=== PATIENT | female | born 1970 | race Caucasian/White ===

== ENCOUNTER → 2018-02-15 10:41 | Outpatient (CLI) | payer OTHER, SELFPAY | PROVIDERS: Family Provider Family Medicine; PCP Family Medicine; Visit Provider Obstetrics & Gynecology | DX: Z12.31 Encounter for screening mammogram for malignant neoplasm of breast (principal) | CPT/HCPCS: 77063; 77067 ==

== ENCOUNTER → 2018-09-18 | Outpatient (CLI) | payer OTHER, SELFPAY ==
[2018-09-18 17:44] LABS: Absolute Lymphocyte Count 2.68 X10^3/ul (0.83-4.51); Absolute Neutrophil Count 3.6 X10^3/uL (2.0-7.7); Basophil# 0.03 X10^3/uL; Basophil% 0.4 % (0-1); Eosinophil# 0.31 X10^3/uL; Eosinophils% 4.3 % (0-5); Hematocrit 38.2 % (37-47); Hemoglobin 12.2 g/dl (12.0-15.0); Lymphocyte # 2.68 X10^3/ul (4.0); Mean Corp Hgb Conc 31.9 g/gl (32-36); Mean Corpuscular Hgb 26.5 pg (27.0-32.0); Mean Corpuscular Volume 82.9 fL (81-99); Mean Platelet Vol. 9.5 fl (6.2-12.0); Monocyte# 0.64 X10^3/uL; Monocyte% 8.8 % (0-10); Neutrophil # 3.58 X10^3/uL (2.7-7.7); Neutrophil % 49.4 % (47-70); Platelet Count 380 K/mm3 (150-450); RBC Distribution Width CV 13.7 % (11.6-14.6); RBC Distribution Width SD 41.6 fl (35.1-43.9); Red Blood Count 4.61 M/mm3 (4.2-5.4); White Blood Count 7.3 K/mm3 (4.4-11.0)
[2018-09-18 17:48] LABS: POSITIVE COUNT NO; POSITIVE DIFFERENTIAL NO; POSITIVE MORPHOLOGY NO
[2018-09-18 18:06] LABS: ALB/GLOB Ratio 1.1 RATIO (0.9-2.4); AST(SGOT) 18 U/L (15-37); Alanine Aminotransfer ALT/SGPT 32 U/L (13-56); Albumin, Serum 3.9 g/dL (3.2-5.0); Alkaline Phosphatase 86 U/L (45-117); Anion Gap 7 (5-15); BUN 14 mg/dL (7-18); BUN/Creat Ratio 18.3 RATIO (10-20); Calcium,Total 8.8 mg/dL (8.5-10.1); Chloride 103 mmol/L (98-107); Creatinine, Serum 0.77 mg/dL (0.55-1.02); EST Glomerular Filtration Rate 86 mL/min (>60); Est Glom Filt Rate - Afr Amer 104 mL/min (>60); Globulin 3.6 g/dL (2.2-4.2); Glucose 95 mg/dL (74-106); Protein, Total 7.5 g/dL (6.4-8.2); Sodium Level 139 mmol/L (136-145); Thyroid Stim Hormone (TSH) 0.84 uIU/mL (0.358-3.74)
== END | disposition home or self-care (01) ==
LOC: MFPLAB 16:56
PROVIDERS: Family Provider Family Medicine; PCP Family Medicine; Referring Provider Family Medicine; Visit Provider Family Medicine
DX: R00.0 Tachycardia, unspecified (principal)
CPT/HCPCS: 36415; 80053; 84443; 85025

== ENCOUNTER → 2019-02-26 | Outpatient (CLI) | payer OTHER, SELFPAY | END | disposition home or self-care (01) | LOC: LABSPEC 16:31 | PROVIDERS: Family Provider Family Medicine; PCP Family Medicine; Referring Provider Obstetrics & Gynecology; Visit Provider Obstetrics & Gynecology | DX: Z12.4 Encounter for screening for malignant neoplasm of cervix (principal) ==

== ENCOUNTER → 2019-03-07 | Outpatient (CLI) | payer OTHER, SELFPAY ==
--- NOTE | 2019-03-07 15:41 | BI_ITS ---
MAMMOGRAPHY - BILATERAL SCREENING REASON FOR EXAM: Female, 48 years old. Routine annual screening examination. PERTINENT HISTORY: Aunt with breast cancer. TECHNIQUE: Digital bilateral breast monica (3D mammographic acquisition) in the CC and MLO projections. 2-D mediolateral oblique (MLO) and craniocaudad (CC) views of both breasts were obtained. CAD: Full Field Digital Mammography with Computer Added Detection was performed. COMPARISON: Comparison is made with prior study dated February 15, 2018 and January 19, 2017. FINDINGS: Breast Composition: The breasts are heterogeneously dense, which may obscure small masses. There are no dominant masses or suspicious calcifications. No other significant abnormalities are identified. There has been no significant change since the prior study. BI/SCREEN MAMM (CAD) W/MONICA BILAT IMPRESSION: Stable bilateral screening mammogram. Yearly follow-up mammogram recommended. (A) ASSESSMENT CATEGORY: BIRADS Category 1: Negative. A letter regarding these results will be sent to the patient by the facility within 30 days. Approximately 10% of breast cancers are not detected by mammography. A normal mammogram should not delay biopsy of a clinically suspicious abnormality. [id number] Electronically Signed: Donnie John, at 8:31 EDT , Service support ,
== END | disposition home or self-care (01) ==
LOC: OPBI 15:40
PROVIDERS: Family Provider Family Medicine; PCP Family Medicine; Referring Provider Obstetrics & Gynecology; Visit Provider Obstetrics & Gynecology
DX: Z12.31 Encounter for screening mammogram for malignant neoplasm of breast (principal)
CPT/HCPCS: 77063; 77067

== ENCOUNTER → 2020-09-07 15:41 | Outpatient (CLI) | payer OTHER, SELFPAY ==
[2019-07-12 10:03] VITALS: BMI 28.5
--- NOTE | 2020-09-07 15:43 | BI_ITS ---
MAMMOGRAPHY - BILATERAL SCREENING REASON FOR EXAM: Female, 50 years old. Routine annual screening examination. PERTINENT HISTORY: Aunt with breast cancer. TECHNIQUE: Digital bilateral breast monica (3D mammographic acquisition) in the CC and MLO projections. 2-D mediolateral oblique (MLO) and craniocaudad (CC) views of both breasts were obtained. CAD: Full Field Digital Mammography with Computer Added Detection was performed. COMPARISON: Comparison is made with prior study dated 03/07/2019 and 02/15/2018. FINDINGS: Breast Composition: The breasts are heterogeneously dense, which may obscure small masses. There are no dominant masses or suspicious calcifications. Stable small benign-appearing bilateral axillary lymph nodes. No other significant abnormalities are identified. There has been no significant change since the prior study. BI/SCRN MAMM (CAD)W/MONICA BILAT IMPRESSION: Stable bilateral screening mammogram. Yearly follow-up mammogram recommended. (A) ASSESSMENT CATEGORY: BIRADS Category 2: Benign. A letter regarding these results will be sent to the patient by the facility within 30 days. Approximately 10% of breast cancers are not detected by mammography. A normal mammogram should not delay biopsy of a clinically suspicious abnormality. [id number] Electronically Signed: Donnie John MD at 8:00 EDT , Service support ,
== END ==
PROVIDERS: PCP Family Medicine; Referring Provider Obstetrics & Gynecology; Visit Provider Obstetrics & Gynecology
DX: Z12.31 Encounter for screening mammogram for malignant neoplasm of breast (principal)
CPT/HCPCS: 77063; 77067

== ENCOUNTER 2021-03-04 16:30 | Outpatient (RCR) | payer OTHER, SELFPAY ==
[2019-07-12 10:03] VITALS: BMI 28.5
--- NOTE | 2020-11-04 07:25 | HP.PTEVAL ---
Patient's Visit Information ERICA PATRICK is a 50 year old F referred to Physical Therapy by Dr. Carol Daugherty MD with a diagnosis of R frozen shoulder. Date of Evaluation: 11/03/20 Physical Therapist: Roge Levy, PT, ATC - Visit Plan Frequency: 2-3x /Week Duration: 4-6 Weeks Plan: R shoulder PROM/MOBS, stretching and strengthening, scap stab ex's, pulleys and HEP. CP for pain - Subjective Pt reports she injured her R shoulder approximately 8 years ago. Pt reports she received a cortisone injection at that time that helped with all her pain. Pt is R hand dominant in nature. Pt reports she is noticing more difficulty with having to perform her IADL's at this time as getting her arm overhead to wash her hair, and reaching behind to grab a seatbelt, all results in increased pain. No tingling or numbness in R UE at this time. Pt reports occasional sleep difficulty at this time secondary to pain. Pt reports no Dx tests at this time. Pt notes 0/10 pain at rest, 10/10 pain at worst. - Pain R shoulder Pain Intensity (Out of 10): 0 Pain Intensity Range: 9 - Objective Neuro: B UE sensation is WNL to light touch. B bicepital reflex= 2/3. Palpation: Pt is sore along the LHB and supraspinatus tendons. No obvious deformity at this time. ROM: L shoulder flex= 160, abd= 160, ER 80, IR WNL; R shoulder flex= 80, abd= 80, ER= 15, IR severely limited. MMT: L shoulder is 5/5 throughout. R shoulder is grossly 4-/5 in available ROM. Special testing: Pos empty can and HK - Goals Goal 1:: Decrease R shoulder pain x 50% to aid with sleep Goal Time Frame: 4-6 Weeks Goal 2:: Increase R shoulder abd and flex ROM x 40 degrees to aid with overhead activity Goal Time Frame: 4-6 Weeks Goal 3:: Increase R shoulder strength x 1 grade to aid with IADL's Goal Time Frame: 4-6 Weeks Goal 4:: I with HEP Goal Time Frame: 4-6 Weeks - Rehabilitation Potential Physical Therapy Diagnosis: R shoulder pain, weakness, and limited ROM secondary to R frozen shoulder Rehabilitation Potential: Good - Anticipated Interventions Patient/Client Instruction: Educate patient on: Condition, Plan of Care For the Purpose of:: To improve self management Therapeutic Exercise to Include: Strength training, Passive ROM, Active ROM, Scapular Strength/Stabilization For the Purpose of:: To decrease pain, To increase ROM, To improve muscle performance and motor function Cryotherapy (ice pack, ice massage): Yes Ultrasound (thermal/non thermal): Yes For the Purpose of:: To decrease pain Thank you for the opportunity to evaluate your patient. For Medicare and Medicare HMO plans, please review the plan of care and approve it. It will need to be FAXED BACK to us at [phone] for Medicare purposes. For Medicare only, by signing this I certify the plan of care. Please let me know if there are questions or concerns regarding this plan of care. Physician Signature: Date:
--- NOTE | 2021-01-12 08:29 | HP.PTREVAL ---
Dr. Carol Daugherty MD, It has been my pleasure to treat ERICA PATRICK over the last 19 visits for R frozen shoulder. Please see the progress note below for an update on the physical therapy plan of care! Subjective: Pt reports she feels a lot better overall, but notes she is still far from getting her arm over her head Objective/Function: R shoulder pain 0/10 currently, increases to 3/10 at worst. R shoulder ROM: flex= 110, abd= 100, ER= 30, IR moderately limited. R shoulder MMT: R shoulder is grossly 4/5 throughout. Pt still lacks functional ROM and strength in R shoulder although she is showing good signs of improvement. Pt would benefit from further skilled therapy at this time. Plan Plan: Continue to focus on ROM and strengthening of the R shoulder Balance/Gait/Functional tests - Balance/Special Test Scores Quick DASH Score: 13.6350 Goals Goal 1:: Decrease R shoulder pain x 50% to aid with sleep Goal Time Frame: 4-6 Weeks Goal Progress: Goal Met Goal 2:: Increase R shoulder abd and flex ROM x 40 degrees to aid with overhead activity Goal Time Frame: 4-6 Weeks Goal Progress: Progressing Goal 3:: Increase R shoulder strength x 1 grade to aid with IADL's Goal Time Frame: 4-6 Weeks Goal Progress: Progressing Goal 4:: I with HEP Goal Time Frame: 4-6 Weeks Goal Progress: Progressing Anticipated Interventions Patient/Client Instruction: Educate patient on: Condition, Plan of Care For the Purpose of:: To improve self management Therapeutic Exercise to Include: Strength training, Passive ROM, Active ROM, Scapular Strength/Stabilization For the Purpose of:: To decrease pain, To increase ROM, To improve muscle performance and motor function Cryotherapy (ice pack, ice massage): Yes Ultrasound (thermal/non thermal): Yes For the Purpose of:: To decrease pain Please do not hesitate to contact me at [phone] by phone or if you have questions or concerns regarding this new plan of care! Sincerely, Roge Levy, PT, ATC
--- NOTE | 2021-02-04 16:40 | HP.PTREVAL_ITS ---
Dr. Carol Daugherty MD, It has been my pleasure to treat ERICA PATRICK over the last 27 visits for R frozen shoulder. Please see the progress note below for an update on the physical therapy plan of care! Subjective: I dont have any pain Objective/Function: No pain this date. No difficulty with sleeping at this time. R shoulder ROM: R shoulder flex= 130, abd= 115 degrees. R shoulder MMT: flex and ER 4/5, abd and IR= 5/5. Pt has shown significant improvements with strength and ROM, but is still limited with functional activities at work and leisure. Plan Plan: Continue to focus on ROM and strengthening of the R shoulder Balance/Gait/Functional tests - Balance/Special Test Scores Quick DASH Score: 11.3625 Goals Goal 1:: Decrease R shoulder pain x 50% to aid with sleep Goal Time Frame: 4-6 Weeks Goal Progress: Goal Met Goal 2:: Increase R shoulder abd and flex ROM x 40 degrees to aid with overhead activity Goal Time Frame: 4-6 Weeks Goal Progress: Progressing Goal 3:: Increase R shoulder strength x 1 grade to aid with IADL's Goal Time Frame: 4-6 Weeks Goal Progress: Progressing Goal 4:: I with HEP Goal Time Frame: 4-6 Weeks Goal Progress: Goal Met Anticipated Interventions Patient/Client Instruction: Educate patient on: Condition, Plan of Care For the Purpose of:: To improve self management Therapeutic Exercise to Include: Strength training, Passive ROM, Active ROM, Scapular Strength/Stabilization For the Purpose of:: To decrease pain, To increase ROM, To improve muscle performance and motor function Cryotherapy (ice pack, ice massage): Yes Ultrasound (thermal/non thermal): Yes For the Purpose of:: To decrease pain Please do not hesitate to contact me at [phone] by phone or Fax: if you have questions or concerns regarding this new plan of care! Sincerely, Roge Levy, PT, ATC
--- NOTE | 2021-07-05 10:02 | HP.PTDCSUM ---
It has been my pleasure to treat ERICA PATRICK referred by Dr. Carol Daugherty MD, with the diagnosis of R frozen shoulder for a total of 34 visit(s). Discharge Date: Please see the following information for a summary of their discharge status. Subjective: Pt reports no pain for the past 6 weeks R shoulder Pain Intensity (Out of 10): 0 % Improvement: 95 Objective/Function: R shoulder pain 0/10. R shoulder MMT: 5/5 throughout with exception to ER= 4+/5. R shoulder ROM: flex= 145, abd= 140. Pt is I with HEP. Rx goals achieved Goal 1:: Decrease R shoulder pain x 50% to aid with sleep Goal Progress: Goal Met Goal 2:: Increase R shoulder abd and flex ROM x 40 degrees to aid with overhead activity Goal Progress: Goal Met Goal 3:: Increase R shoulder strength x 1 grade to aid with IADL's Goal Progress: Goal Met Goal 4:: I with HEP Goal Progress: Goal Met Plan: Discharge to HEP If there are questions or concerns regarding this patient's physical therapy, please feel free to call me at [phone]. Thank you for the referral of this patient. Sincerely, Roge Levy, PT, ATC Balance/Gait/Functional tests - Balance/Special Test Scores Quick DASH Score: 0
== END 2021-03-04 19:00 | disposition home or self-care (01) ==
LOC: PT 16:30
PROVIDERS: PCP Family Medicine; Referring Provider Family Medicine; Visit Provider Family Medicine
DX: M75.01 Adhesive capsulitis of right shoulder (principal)
CPT/HCPCS: 97110; 97140; 97161; 97164

== ENCOUNTER 2021-07-12 16:45 | Outpatient (CLI) | payer OTHER, SELFPAY ==
[2021-07-16 18:58] LABS: HPV APTIMA, High Risk Negative (Negative)
== END 2021-07-12 23:59 | disposition short-term general hospital (02) ==
LOC: LABSPEC 07-13 09:09
PROVIDERS: PCP Family Medicine; Visit Provider Obstetrics & Gynecology
DX: Z12.4 Encounter for screening for malignant neoplasm of cervix (principal)
CPT/HCPCS: 87624; 88175; G0145

== ENCOUNTER 2021-09-08 08:07 | Outpatient (CLI) | payer OTHER, SELFPAY ==
--- NOTE | 2021-09-08 08:10 | BI_ITS ---
MAMMOGRAPHY - BILATERAL SCREENING REASON FOR EXAM: Female, 51 years old. Routine annual screening examination. PERTINENT HISTORY: Aunt with breast cancer. TECHNIQUE: Digital bilateral breast monica (3D mammographic acquisition) in the CC and MLO projections. 2-D mediolateral oblique (MLO) and craniocaudad (CC) views of both breasts were obtained. CAD: Full Field Digital Mammography with Computer Added Detection was performed. COMPARISON: Comparison is made with prior study dated 09/07/2020 and 03/07/2019. FINDINGS: Breast Composition: The breasts are heterogeneously dense, which may obscure small masses. There are no dominant masses or suspicious calcifications. No other significant abnormalities are identified. There has been no significant change since the prior study. BI/SCRN MAMM (CAD)W/MONICA BILAT IMPRESSION: Stable bilateral screening mammogram. Yearly follow-up mammogram recommended. (A) ASSESSMENT CATEGORY: BIRADS Category 1: Negative. A letter regarding these results will be sent to the patient by the facility within 30 days. Approximately 10% of breast cancers are not detected by mammography. A normal mammogram should not delay biopsy of a clinically suspicious abnormality. [id number] Electronically Signed: Donnie John MD at 8:58 EDT ,
== END 2021-09-08 23:59 | disposition home or self-care (01) ==
LOC: OPBI 08:08
PROVIDERS: PCP Family Medicine; Visit Provider Obstetrics & Gynecology
DX: Z12.31 Encounter for screening mammogram for malignant neoplasm of breast (principal)
CPT/HCPCS: 77063; 77067

== ENCOUNTER → 2021-11-13 | Outpatient (CLI) | payer OTHER, SELFPAY ==
[2021-11-13 08:46] LABS: Anion Gap 2 (5-15); BUN 23 mg/dL (7-18); Chloride 108 mmol/L (98-107); Cholesterol 151 mg/dL (200); Creatinine, Serum 0.72 mg/dL (0.55-1.02); EST Glomerular Filtration Rate 92 mL/min (>60); Est Glom Filt Rate - Afr Amer 111 mL/min (>60); Glucose 102 mg/dL (74-106); High Density Lipoprotein 84 mg/dL; Potassium 4.6 mmol/L (3.5-5.1); Sodium Level 142 mmol/L (136-145); Triglycerides 40 mg/dL; Very Low Density Lipoprotein 8 mg/dL (5-40)
== END | disposition home or self-care (01) ==
LOC: LAB 07:33
PROVIDERS: PCP Family Medicine; Referring Provider Nurse Practitioner Family; Visit Provider Nurse Practitioner Family
DX: Z13.1 Encounter for screening for diabetes mellitus (principal); Z13.220 Encounter for screening for lipoid disorders
CPT/HCPCS: 36415; 80048; 80061

== ENCOUNTER 2022-04-11 08:00 | Outpatient (RCR) | payer OTHER, SELFPAY ==
--- NOTE | 2021-10-18 09:47 | HP.PTEVAL_ITS ---
Patient's Visit Information ERICA PATRICK is a 51 year old F referred to Physical Therapy by PATY Willams with a diagnosis of L shoulder pain. Date of Evaluation: 10/15/21 Physical Therapist: Dwight Rodriguez DPT - Visit Plan Frequency: 5x /Week Duration: 4-6 Weeks Plan: Start with Gh joint mobilizations. End range shoulder stretching. Add in HEP to increase consistency with home progression. - Subjective Pt. is here today for her initial evaluation with diagnosis of L shoulder pain. Pt. over the past few months has been having increased pain and stiffness over the fast few months. She reports having similar issues with her R shoulder last year around the same time. She reports no mech of injury and no new changes. She is able to have minimal pain with her arm at rest, but is having progressively loss of ROM. She is not having difficulty with any over head movements, upper body dressing, and ALDs over head. 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 She is having a lot of difficulty with recreational activities as well. Patient is hopeful to reduce symptoms in order to get back to all recreational activities without limitations. - Pain L shoulder Pain Intensity (Out of 10): 2 Pain Intensity Range: 0, 6 - Objective POSTURE: pt. has normal posture in stance. Normal shoulder heights. PALPATION: Slight tenderness at anterior shoulder, no pain with rest of palpation. Mild tenderness at subscap region. NEURO: patient has normal neurological signs. ROM: R shoulder full AROM of R shoulder. L shoulder: AROM: flexion 70deg, abd 60deg, functional ER ear, functional IR iliac crest. MMT: RUE: 5/5 throughout. LUE: wrist and elbow 5/5 throughout; shoulder: flexion 4/5, abd 4-/5, ER 4/5, IR 5/5, ext 5/5. - Special Tests L Shoulder Drop Sign - IS Test: Negative L Shoulder Empty Can - SS: Negative L Shoulder Belly Press - SupScap: Negative L Shoulder Neer - Impingement: Positive L Shoulder Brandt Grupo - Impingement: Positive L Shoulder Shrug Sign - OA/Adhesive Capsulitis: Positive - Balance/Special Test Scores Quick DASH Score: 25.0000 - Goals Goal 1:: LTG: Pt. to be I with HEP for RUE ROM and strengthening. Goal Time Frame: 4-6 Weeks Goal 2:: LTG: pt. to have full L shoulder ROM symmetrical to R side Goal Time Frame: 4-6 Weeks Goal 3:: LTG: Pt. to have increased L shoulder strength symmetrical to R side. Goal Time Frame: 4-6 Weeks Goal 4:: LTG: pt. to complete all ADLs and work activities without limitations. Goal Time Frame: 4-6 Weeks Goal 5:: LTG: pt. to sleep throughout the night without increase in symptoms. Goal Time Frame: 4-6 Weeks - Rehabilitation Potential Physical Therapy Diagnosis: Pt. has signs and symptoms consistent with L shoulder pain, most likely adhesive capsulitis. She has capsular pattern tightness. She does not have signs of RTC injury, and with no mech of injury. She had a similar issue in her opposite shoulder the previous year. Pt. would benefit from PT to address her ROM limitations progressing back to all functional activities. Rehabilitation Potential: Excellent - Anticipated Interventions Patient/Client Instruction: Educate patient on: Condition, Plan of Care, Risk Factors, Benefits of Fitness Program For the Purpose of:: To facilitate caregiver knowledge, To improve self management, To prevent re-injury, To improve ability to perform tasks related to life management, To improve tolerance to ADL's Therapeutic Exercise to Include: Strength training, Power training, Body mechanics, Postural training, Flexibilty training, Passive ROM, Active ROM, Scapular Strength/Stabilization For the Purpose of:: To decrease pain, To decrease swelling/inflammation, To increase ROM, To improve nutrient delivery to tissue, To increase oxygenation perfusion, To improve muscle performance and motor function, To improve ability to perform ADL's, To increase tolerance to activity/condition/position, To decr ease soft tissue restriction, To increase flexibility/ROM Thank you for the opportunity to evaluate your patient. For Medicare and Medicare HMO plans, please review the plan of care and approve it. It will need to be FAXED BACK to us at [phone] for Medicare purposes. For Medicare only, by signing this I certify the plan of care. Please let me know if there are questions or concerns regarding this plan of care. Physician Signature: Date:
--- NOTE | 2021-11-18 16:44 | HP.PTREVAL ---
Kendy Freitas, RADHIKA-C, It has been my pleasure to treat ERICA PATRICK over the last 11 visits for L shoulder pain. Please see the progress note below for an update on the physical therapy plan of care! Subjective: Pt reports she is achy today Objective/Function: L shoulder pain ranges from 2/10 to 8/10. L shoulder AROM: flex= 81, abd= 60, ER= 25, IR moderaly limited. L shoulder MMT: 3/5 throughout available ROM Plan Plan: Start with GH joint mobilizations. End range shoulder stretching. Add in HEP to increase consistency with home progression. Balance/Gait/Functional tests - Balance/Special Test Scores Quick DASH Score: 29.5450 Goals Goal 1:: LTG: Pt. to be I with HEP for RUE ROM and strengthening. Goal Time Frame: 4-6 Weeks Goal Progress: Progressing Goal 2:: LTG: pt. to have full L shoulder ROM symmetrical to R side Goal Time Frame: 4-6 Weeks Goal Progress: Progressing Goal 3:: LTG: Pt. to have increased L shoulder strength symmetrical to R side. Goal Time Frame: 4-6 Weeks Goal Progress: Progressing Goal 4:: LTG: pt. to complete all ADLs and work activities without limitations. Goal Time Frame: 4-6 Weeks Goal Progress: Progressing Goal 5:: LTG: pt. to sleep throughout the night without increase in symptoms. Goal Time Frame: 4-6 Weeks Goal Progress: Progressing Anticipated Interventions Patient/Client Instruction: Educate patient on: Condition, Plan of Care, Risk Factors, Benefits of Fitness Program For the Purpose of:: To facilitate caregiver knowledge, To improve self management, To prevent re-injury, To improve ability to perform tasks related to life management, To improve tolerance to ADL's Therapeutic Exercise to Include: Strength training, Power training, Body mechanics, Postural training, Flexibilty training, Passive ROM, Active ROM, Scapular Strength/Stabilization For the Purpose of:: To decrease pain, To decrease swelling/inflammation, To increase ROM, To improve nutrient delivery to tissue, To increase oxygenation perfusion, To improve muscle performance and motor function, To improve ability to perform ADL's, To increase tolerance to activity/condition/position, To decrease soft tissue restriction, To increase flexibility/ROM Please do not hesitate to contact me at [phone] by phone or if you have questions or concerns regarding this new plan of care! Sincerely, Roge Levy, PT, ATC
--- NOTE | 2021-12-24 11:54 | HP.PTREVAL_ITS ---
Kendy Freitas, RADHIKA-C, It has been my pleasure to treat ERICA PATRICK over the last 20 visits for L shoulder pain. Please see the progress note below for an update on the physical therapy plan of care! Subjective: Pt. reports gaining ground, but still stiff. She reports no pain at rest or sleeping. She does have some pain with end range of motions in all direc tions. Objective/Function: AROM: L shoulder: flexion 110deg, abd 110deg, functional IR S1, functional ER C1 aberrant motion noted. Pt. has to rely on shoulder elevation to assist with any flexion/abduction motions. PROM: L shoulder flexion: 130deg, abd 135deg, ER at 45deg of abd 20deg, IR at 45deg of abd 20deg. Pt. had more of a leathery feel with her mobilizations this date rather than a hard end feel. This is an improvement. I want to really work on scapular mobility, GH mobility and deep massage to RTC both ER and IR movers. Cont. to progress into end ranges as tolerated. Plan Plan: I want to really work on scapular mobility, GH mobility and deep massage to RTC both ER and IR movers. Cont. to progress into end ranges as tolerated. Balance/Gait/Functional tests - Balance/Special Test Scores Quick DASH Score: 29.5450 Goals Goal 1:: LTG: Pt. to be I with HEP for RUE ROM and strengthening. Goal Time Frame: 4-6 Weeks Goal Progress: Progressing Goal 2:: LTG: pt. to have full L shoulder ROM symmetrical to R side Goal Time Frame: 4-6 Weeks Goal Progress: Progressing Goal 3:: LTG: Pt. to have increased L shoulder strength symmetrical to R side. Goal Time Frame: 4-6 Weeks Goal Progress: Progressing Goal 4:: LTG: pt. to complete all ADLs and work activities without limitations. Goal Time Frame: 4-6 Weeks Goal Progress: Progressing Goal 5:: LTG: pt. to sleep throughout the night without increase in symptoms. Goal Time Frame: 4-6 Weeks Goal Progress: Goal Met Anticipated Interventions Patient/Client Instruction: Educate patient on: Condition, Plan of Care, Risk Factors, Benefits of Fitness Program For the Purpose of:: To facilitate caregiver knowledge, To improve self management, To prevent re-injury, To improve ability to perform tasks related to life management, To improve tolerance to ADL's Therapeutic Exercise to Include: Strength training, Power training, Body mechanics, Postural training, Flexibilty training, Passive ROM, Active ROM, Scapular Strength/Stabilization For the Purpose of:: To decrease pain, To decrease swelling/inflammation, To increase ROM, To improve nutrient delivery to tissue, To increase oxygenation perfusion, To improve muscle performance and motor function, To improve ability to perform ADL's, To increase tolerance to activity/condition/position, To decrease soft tissue restriction, To increase flexibility/ROM Please do not hesitate to contact me at [phone] by phone or if you have questions or concerns regarding this new plan of care! Sincerely, Dwight Rodriguez DPT
--- NOTE | 2022-03-07 09:49 | HP.PTREVAL ---
Kendy Freitas, RADHIKA-C, It has been my pleasure to treat ERICA PATRICK over the last 37 visits for L shoulder pain. Please see the progress note below for an update on the physical therapy plan of care! Subjective: Pt. reports overall improving, but not fully there. She reports being able to do more at home and at work. better ROM. Objective/Function: ROM: PROM: flexion 150deg, abd 150deg, ER at 90deg 70deg, IR at 90deg 35deg. Pt. is overall improving. She is slowly progressing back to normal. Pt. has made good improvement since last assessment. Her strength to 4+/5 throughout, with in available ROM. Cont. to progress towards end range. Plan Plan: Cont. to progress towards end range. She is approaching. Add in H abd ROM, IR, ER and any over head. Add in some active mobility, but continue to focus on end range stretching, mobilizations. Balance/Gait/Functional tests - Balance/Special Test Scores Quick DASH Score: 15.9075 Goals Goal 1:: LTG: Pt. to be I with HEP for RUE ROM and strengthening. Goal Time Frame: 4-6 Weeks Goal Progress: Goal Met Goal 2:: LTG: pt. to have full L shoulder ROM symmetrical to R side Goal Time Frame: 4-6 Weeks Goal Progress: Progressing Goal 3:: LTG: Pt. to have increased L shoulder strength symmetrical to R side. Goal Time Frame: 4-6 Weeks Goal Progress: Progressing Goal 4:: LTG: pt. to complete all ADLs and work activities without limitations. Goal Time Frame: 4-6 Weeks Goal Progress: Progressing Goal 5:: LTG: pt. to sleep throughout the night without increase in symptoms. Goal Time Frame: 4-6 Weeks Goal Progress: Goal Met Anticipated Interventions Patient/Client Instruction: Educate patient on: Condition, Plan of Care, Risk Factors, Benefits of Fitness Program For the Purpose of:: To facilitate caregiver knowledge, To improve self management, To prevent re-injury, To improve ability to perform tasks related to life management, To improve tolerance to ADL's Therapeutic Exercise to Include: Strength training, Power training, Body mechanics, Postural training, Flexibilty training, Passive ROM, Active ROM, Scapular Strength/Stabilization For the Purpose of:: To decrease pain, To decrease swelling/inflammation, To increase ROM, To improve nutrient delivery to tissue, To increase oxygenation perfusion, To improve muscle performance and motor function, To improve ability to perform ADL's, To increase tolerance to activity/condition/position, To decrease soft tissue restriction, To increase flexibility/ROM Please do not hesitate to contact me at [phone] by phone or if you have questions or concerns regarding this new plan of care! Sincerely, Dwight Rodriguez DPT
== END 2022-04-11 19:00 | disposition home or self-care (01) ==
LOC: PT 08:00
PROVIDERS: PCP Family Medicine; Referring Provider Nurse Practitioner Family; Visit Provider Nurse Practitioner Family
DX: M25.512 Pain in left shoulder (principal)
CPT/HCPCS: 97110; 97140; 97161; 97164; 97530

== ENCOUNTER 2022-04-27 16:00 | Outpatient (RCR) | payer OTHER, SELFPAY | END 2022-04-27 19:00 | disposition home or self-care (01) | LOC: PT 16:00 | PROVIDERS: PCP Family Medicine; Referring Provider Nurse Practitioner Family; Visit Provider Nurse Practitioner Family | DX: M25.512 Pain in left shoulder (principal) | CPT/HCPCS: 97110 ==

== ENCOUNTER → 2022-09-27 | Outpatient (CLI) | payer OTHER, SELFPAY ==
--- NOTE | 2022-09-27 15:57 | BI_ITS ---
MAMMOGRAPHY - BILATERAL SCREENING 3-D TOMOSYNTHESIS REASON FOR EXAM: Female, 52 years old. Routine screening PERTINENT HISTORY: Aunt with breast cancer.. TECHNIQUE: 2-D mammograms and 3-D Tomosynthesis of the breast (s) were performed. CAD was performed. COMPARISON: 09/07/2020 FINDINGS: The breast composition is heterogeneously dense that can obscure small breast masses. Scattered benign calcifications are seen. No dense spiculated masses or suspicious microcalcifications are identified. No architectural distortion is identified. There is no skin thickening or retraction. There has been no significant change since the prior study. BI/SCRN MAMM (CAD)W/MONICA BILAT IMPRESSION: No mammographic signs of malignancy. Routine yearly mammograms recommended. ASSESSMENT CATEGORY: BIRADS Category 2: Benign. A letter regarding these results will be sent to the patient by the facility within 30 days. FOLLOW UP RECOMMENDATION: Yearly follow up mammogram recommended. (A) Approximately 10% of breast cancers are not detected by mammography. A normal mammogram should not delay biopsy of a clinically suspicious abnormality. Electronically Signed: Emmett Dobson MD at 7:40 EDT ,
== END | disposition home or self-care (01) ==
LOC: OPBI 15:55
PROVIDERS: PCP Family Medicine; Referring Provider Obstetrics & Gynecology; Visit Provider Obstetrics & Gynecology
DX: Z12.31 Encounter for screening mammogram for malignant neoplasm of breast (principal)
CPT/HCPCS: 77063; 77067

== ENCOUNTER → 2023-12-26 | Outpatient (CLI) | payer OTHER, SELFPAY ==
[2023-12-26 12:40] LABS: ALB/GLOB Ratio 0.9 RATIO (0.9-2.4); AST(SGOT) 16 U/L (15-37); Alanine Aminotransfer ALT/SGPT 22 U/L (13-56); Albumin, Serum 3.3 g/dL (3.2-5.0); Alkaline Phosphatase 55 U/L (45-117); Anion Gap 3 (5-15); BUN 20 mg/dL (7-18); BUN/Creat Ratio 26.7 RATIO (10-20); Calcium,Total 8.8 mg/dL (8.5-10.1); Chloride 109 mmol/L (98-107); Cholesterol 143 mg/dL (200); Creatinine, Serum 0.75 mg/dL (0.55-1.02); EST Glomerular Filtration Rate 87 mL/min (>60); Est Glom Filt Rate - Afr Amer 105 mL/min (>60); Globulin 3.7 g/dL (2.2-4.2); Glucose 110 mg/dL (74-106); High Density Lipoprotein 76 mg/dL; Potassium 4.2 mmol/L (3.5-5.1); Sodium Level 140 mmol/L (136-145); Thyroid Stim Hormone (TSH) 1.52 uIU/mL (0.358-3.74); Triglycerides 31 mg/dL; Very Low Density Lipoprotein 6 mg/dL (5-40)
[2023-12-26 16:39] LABS: Microalbumin,Random Urine 35.3 mg/L (NO RANGE EST.); Microalbumin:Creatinine Ratio 22.2 mg/g CRE (<30 mg/g CRE)
== END | disposition home or self-care (01) ==
LOC: MFPLAB 09:22
PROVIDERS: PCP Family Medicine; Visit Provider Family Medicine
DX: R73.01 Impaired fasting glucose (principal)
CPT/HCPCS: 36415; 80053; 80061; 82043; 82570; 84443

== ENCOUNTER → 2024-01-09 | Outpatient (CLI) | payer OTHER, SELFPAY ==
--- NOTE | 2024-01-09 13:27 | BI_ITS ---
MAMMOGRAPHY - BILATERAL SCREENING REASON FOR EXAM: Female, 53 years old. Routine annual screening examination. PERTINENT HISTORY: Aunt with breast cancer. TECHNIQUE: Digital bilateral breast monica (3D mammographic acquisition) in the CC and MLO projections. 2-D mediolateral oblique (MLO) and craniocaudad (CC) views of both breasts were obtained. CAD: Full Field Digital Mammography with Computer Added Detection was performed. COMPARISON: Comparison is made with prior study September 27, 2022 and September 08, 2021. FINDINGS: Breast Composition: The breasts are heterogeneously dense, which may obscure small masses. There are no dominant masses or suspicious calcifications. No other significant abnormalities are identified. There has been no significant change since the prior study. BI/SCRN MAMM (CAD)W/MONICA BILAT IMPRESSION: Stable bilateral screening mammogram. Yearly follow-up mammogram recommended. (A) ASSESSMENT CATEGORY: BIRADS Category 1: Negative. A letter regarding these results will be sent to the patient by the facility within 30 days. Approximately 10% of breast cancers are not detected by mammography. A normal mammogram should not delay biopsy of a clinically suspicious abnormality. [id number] Electronically Signed: Donnie John MD at 14:19 EDT ,
== END | disposition home or self-care (01) ==
LOC: OPBI 13:26
PROVIDERS: PCP Family Medicine; Referring Provider Family Medicine; Visit Provider Family Medicine
DX: Z12.31 Encounter for screening mammogram for malignant neoplasm of breast (principal)
CPT/HCPCS: 77063; 77067

== ENCOUNTER 2024-04-01 07:42 | Day surgery (SDC) | payer OTHER, SELFPAY ==
--- NOTE | 2024-04-01 08:16 | PCM.PRE.AN2 ---
ASA Classification* ASA Classification ASA Classification: 2 Assessment & Plan Anesthesia* Anesthesia Assessment Anesthesia Assessment: Discussed sedation and/or anesthesia options, risks, benefits, and alternatives with patient/parents/legal guardian/POA. Questions invited. The patient/parents/legal guardian/POA seems to understand and agrees to proceed with anesthesia plan. Reviewed the physical assessment, medical history, allergy history and patient home medications list prior to surgery/procedure/anesthetic and documented any changes. Performed airway and anesthesia risk assessments. Anesthesia Type Anesthesia Type: MAC Anesthesia Focused Assessment* Airway Assessment Mouth opens: >3 cm Mallampati Score: II Focused Labs Anesthesia Preop lab: CBC WBC 7.3 K/mm3 (4.4-11.0) 09/18/18 16:56 RBC 4.61 M/mm3 (4.2-5.4) 09/18/18 16:56 Hgb 12.2 g/dl (12.0-15.0) 09/18/18 16:56 Hct 38.2 % (37-47) 09/18/18 16:56 Plt Count 380 K/mm3 (150-450) 09/18/18 16:56 CHEMISTRY Potassium 4.2 mmol/L (3.5-5.1) 12/26/23 09:22 Sodium 140 mmol/L (136-145) 12/26/23 09:22 BUN 20 mg/dL (7-18) H 12/26/23 09:22 Creatinine 0.75 mg/dL (0.55-1.02) 12/26/23 09:22 Glucose 110 mg/dL (74-106) H 12/26/23 09:22 TSH 1.52 uIU/mL (0.358-3.74) 12/26/23 09:22 COAG Pre-Assessment Diagnosis/Proposed Procedure Planned Operative Procedure(s): CSCOPE Anesthesia History Anesthesia History - buckle inspector: Anesthesia History - buckle inspector Hx Hospitalization No 03/27/24 15:45 Any Problems With Anesthesia No 03/27/24 15:45 Cholinesterase deficiency No 03/27/24 15:45 You/Your Family Experience No 03/27/24 15:45 fever (hyperthermia) with Relationship Recent Exposure to Contagious Disease Does patient have nerve No 03/27/24 15:45 stimulator Patient instructed to have device shut off --Does patient have Pacemaker or ICD? When Was Last Pacemaker Check QUESTION #4 FULL TEXT: You/Your Family Experience fever (hyperthermia) with Anesthesia Last Oral Intake Last Oral intake: Last Oral Intake NPO since Meds taken in AM with sips of water? Meds patient instructed to take am of surgery PONV PONV - buckle inspector: PONV - buckle inspector Female Yes 03/27/24 15:45 HX of Motion Sickness No 03/27/24 15:45 HX of N/V After Surgery No 03/27/24 15:45 Non-Smoker Yes 03/27/24 15:45 Duration of Surgery greater No 03/27/24 15:45 than 60 minutes Number of Risk Factors 2 03/27/24 15:45 PONV Score Moderate Risk 03/27/24 15:45 Height & Weight Height & Weight: Anesthesia: Height & Weight Height 5 ft 7 in 02/05/24 10:41 Respiratory Assessment Respiratory Assessment - buckle inspector: Respiratory Tract Infection Hx - buckle inspector Hx Respiratory Tract Infection No 03/27/24 15:45 STOP Sleep Apnea STOP Sleep Apnea - buckle inspector: STOP Sleep Apnea - buckle inspector Hx Hypertension No 03/27/24 15:45 Hx Sleep Apnea No 03/27/24 15:45 CPAP BIPAP Do you snore loudly (louder No 03/27/24 15:45 than talking or can be heard Do you often feel tired/ No 03/27/24 15:45 fatigued/ sleepy during daytime? Has anyone observed you stop No 03/27/24 15:45 breathing during sleep? STOP Results Negative 03/27/24 15:45 QUESTION #5 FULL TEXT : Do you snore loudly (louder than talking or can be heard through closed doors)? Tobacco Use History Tobacco Use History - buckle inspector: Tobacco Use History - buckle inspector Tobacco Use Smoking Status Never smoker 03/27/24 15:45 Hx Tobacco Use No 03/27/24 15:45 Years Smoking Packs Smoked per Day Smoking Cessation Date was within the last 15 years Hx Smoking Cessation Date Hx Smoking Cessation Counseling Hematologic Medial History Hematologic Hx - buckle inspector: Hematologic Medical Hx - community engagement representative Hx of Blood Transfusion No 03/27/24 15:45 Hx of Transfusion in last 3 No 03/27/24 15:45 Months Date of Last Transfusion (if within last 3 months) Ever experience any problems No 03/27/24 15:45 with transfusion(s)? Specify any problems Hx of Preganancy in last 3 N/A 03/27/24 15:45 Months Nurse Filling Out Transfusion NBUCHER 03/27/24 15:45 & Questions: Date: 03/27/24 03/27/24 15:45 Time: 15:46 03/27/24 15:45 Patient unable to answer at this time (ie. confused, unrespo /Reproduction History /Reproductive History - buckle inspector: /Reproductive Hx- buckle inspector Hx Now No 03/27/24 15:45 Gestational Age (in weeks): EDC: Hx Hx Para Hx Section SAB No 03/27/24 15:45 PFSH Medical History Cancer Non-smoker IFG (impaired fasting glucose) Idiopathic scoliosis and kyphoscoliosis Strep pharyngitis Contact with and (suspected) exposure to other viral communicable diseases Acute bronchitis, unspecified Influenza A Home Medications ?Medication ?Instructions ?Recorded ?Last Taken ?Type NK 03/27/24 Unknown History Allergy/AdvReac Type Severity Reaction Status Date / Time adhesive (adhesives) AdvReac Mild skin Verified 03/27/24 15:45 irritation Family History Father Diabetes Other Hypertension Social History household members: spouse current occupational status: employed current occupation: Speech Therapist Smoking Status: Never smoker alcohol intake: current alcohol intake frequency: holidays/special occasions only Alcohol type: wine substance use type: does not use Review of Systems (Anesthesia) ROS Narrative System reviewed and no additional complaints, except as documented.
[2024-04-01 08:18] VITALS: BP 101/60; PULSE 68; RESP 18; TEMP 36.3; O2SAT 100; BMI 25.7
[2024-04-01 08:29] LABS: Internal QC Validated? YES +Cl - CLEAR BKGD; Pregnancy, Serum, hCG Quali. NEGATIVE Negative
--- NOTE | 2024-04-01 08:36 | HP.PCM_ITS ---
HPI - General General Date of Admission: 04/01/24 Date of Service: 04/01/24 Chief Complaint: Screening colonoscopy HPI Narrative ERICA PTARICK, is a 53 F who presents today for screening colonoscopy. She does not have any abdominal pain. She did not have any nausea, vomiting or diarrhea. Overall she is very good health. [facility] Medical History Cancer Non-smoker IFG (impaired fasting glucose) Idiopathic scoliosis and kyphoscoliosis Strep pharyngitis Contact with and (suspected) exposure to other viral communicable diseases Acute bronchitis, unspecified Influenza A Home Medications ?Medication ?Instructions ?Recorded ?Last Taken ?Type NK 03/27/24 Unknown History Allergy/AdvReac Type Severity Reaction Status Date / Time adhesive (adhesives) AdvReac Mild skin Verified 03/27/24 15:45 irritation Family History Father Diabetes Other Hypertension Social History household members: spouse current occupational status: employed current occupation: Speech Therapist Smoking Status: Never smoker alcohol intake: current alcohol intake frequency: holidays/special occasions only Alcohol type: wine substance use type: does not use ROS Review of Systems ROS Unobtainable: other Constitutional Constitutional: Denies fatigue, fever(s), poor appetite, weight gain or weight loss ENT HEENT: Denies mouth lesions Cardiovascular Cardiovascular: Denies abdominal bloating, abdominal edema or abdominal pain Respiratory/Chest Respiratory/Chest: Denies change in mental status, change in phlegm color, chest congestion or chest tightness Gastrointestinal Gastrointestinal: Denies belching, bloating, change in bowel habits, change in stool character, chewing difficulty, coffee ground emesis, constipation, cramping, diarrhea, dyspepsia, dysphagia, early satiety, excessive flatus, fecal incontinence, heartburn, hematemesis, hematochezia, hemorrhoids, loose stools, melena, nausea, odynophagia, rectal bleeding, tenesmus, vomiting or weight changes Genitourinary Genitourinary: Denies abdominal discomfort, burning urination or itching Musculoskeletal Musculoskeletal: Reports as per HPI; Denies muscle weakness or myalgias Integumentary Integumentary: Denies jaundice Neurologic Neurologic: Denies lack of coordination or weakness Psychiatric Psychiatric: Denies confusion, depression, memory loss, mood swings, paranoia or suicidal ideation Endocrine Endocrinology: Denies systems reviewed and no addt'l complaints, except as documented Hematologic/Lymphatic Hematologic/Lymphatic: Denies anemia, easy bleeding, easy bruising or lymphadenopathy Allergic/Immunologic Allergic/Immunologic: Denies systems reviewed and no addt'l complaints, except as documented Vital Signs Vital Signs Vital Signs: 04/01/24 08:18 04/01/24 08:18 Temperature 97.4 F L Temperature Source Temporal Pulse Rate 68 Respiratory Rate 18 Respiratory Pattern Normal Blood Pressure 101/60 Blood Pressure Mean 73 Blood Pressure Source Monitor Blood Pressure Position Semi-Fowlers Blood Pressure Location Right Arm Pulse Ox 100 Oxygen Delivery Method Room Air Weight Weight: 164 lb 8 oz Body Mass Index (BMI) 25.7 Physical Exam Const alert, oriented x3, no apparent distress, healthy appearing and well nourished General Appearance: cooperative, comfortable, well kempt and well developed Orientation / Consciousness: awake and oriented to person HEENT Head and Scalp: normocephalic and atraumatic Face and Sinus: normal facial exam Mouth: oral and palatal mucosa normal Eyes General Eye: normal appearance of both eyes Neck full ROM Lymph Lymphatic: no lymphadenopathy noted Chest inspection of chest normal Resp normal respiratory effort and no use of accessory muscles Cardio regular rate and regular rhythm GI normal to inspection, nondistended, normoactive bowel sounds, soft to palpation, non-tender, non-distended and no masses Auscultation: normoactive bowel sounds Palpation: soft Percussion: normal to percussion Rectal Exam: visual inspection normal and normal sphincter tone no CVA tenderness Back/Spine no CVA tenderness and normal ROM Extremity normal to inspection Peripheral Pulses: Yes pulses 2+ throughout Skin no rashes or lesions noted General Skin Exam: no breakdown, elasticity normal and turgor normal Neuro oriented x3 Motor Exam: strength 5/5 throughout Psych mental status grossly normal Appearance: grossly normal Attitude: calm Activity / Motor Behavior: appropriate eye contact Speech: normal speech Thought Process: normal thought process Thought Content: normal thought content Attention / Concentration: attention grossly intact Memory / Cognition: memory grossly intact Insight: insight good Judgement: judgement good Results Lab / Micro Data Labs: Laboratory Results - last 24 hr 04/01/24 08:12: Serum , Qual NEGATIVE Assessment & Plan Assessment/Plan (1) Encounter for screening for malignant neoplasm of colon: PLAN: She was explained alternatives, risk, benefits include not withstanding bleeding, infection, sepsis, perforation, need for return to . She will have an ASA of 3.
--- NOTE | 2024-04-01 09:34 | OP.CCLET_ITS ---
04/01/2024 Andre Michaud [address] [place] [address] Re : Colonoscopy procedure for Emily Jean Dear Dr. Michaud This procedure was performed on Monday, April 01, 2024. My impressions and recommendations are as follows: Impressions : - Diverticulosis in the recto-sigmoid colon. - The examination was otherwise normal on direct and retroflexion views. - No specimens collected. Recommendations : - Discharge patient to home. - Resume previous diet. - Continue present medications. - Repeat colonoscopy in 10 years for screening purposes. My findings are described in the full procedure note, which is enclosed. If I can be of further assistance, please feel free to contact me at . Sincerely, Edgar Johnson, 04/01/2024 9:34:12 AM This report has been signed electronically.
--- NOTE | 2024-04-01 09:34 | OP.COLON_ITS ---
Patient Name: Emily Jean Procedure Date: 04/01/2024 9:11 AM Date of : 1970 Age: 53 Procedure: Colonoscopy Indications: Screening for colorectal malignant neoplasm Providers: Edgar Johnson DO Referring MD: Edgar Johnson DO Medicines: Monitored Anesthesia Care Patient Profile: This is a 53 year old female. Refer to note in patient chart for documentation of history and physical. Last Colonoscopy: none. The patient's first colonoscopy is today. Complications: No immediate complications. Procedure: Pre-Anesthesia Assessment: - Prior to the procedure, a History and Physical was performed, and patient medications and allergies were reviewed. The patient is competent. The risks and benefits of the procedure and the sedation options and risks were discussed with the patient. All questions were answered and informed consent was obtained. Patient identification and proposed procedure were verified by the physician in the pre-procedure area. Mental Status Examination: alert and oriented. Airway Examination: normal oropharyngeal airway and neck mobility. Respiratory Examination: clear to auscultation. CV Examination: normal. Prophylactic Antibiotics: The patient does not require prophylactic antibiotics. Prior Anticoagulants: The patient has taken no anticoagulant or antiplatelet agents except for NSAID medication. ASA Grade Assessment: II - A patient with mild systemic disease. After reviewing the risks and benefits, the patient was deemed in satisfactory condition to undergo the procedure. The anesthesia plan was to use monitored anesthesia care (MAC). Immediately prior to administration of medications, the patient was re-assessed for adequacy to receive sedatives. The heart rate, respiratory rate, oxygen saturations, blood pressure, adequacy of pulmonary ventilation, and response to care were monitored throughout the procedure. The physical status of the patient was re-assessed after the procedure. After I obtained informed consent, the scope was passed under direct vision. Throughout the procedure, the patient's blood pressure, pulse, and oxygen saturations were monitored continuously. The colonoscope was introduced through the anus and advanced to the cecum, identified by appendiceal orifice and ileocecal valve. The colonoscopy was performed without difficulty. The patient tolerated the procedure well. The quality of the bowel preparation was adequate. The ileocecal valve, appendiceal orifice, and rectum were photographed. Scope In: 9:17:31 AM Scope Withdrawal Time 0 hours 7 minutes 29 seconds Scope Out: 9:29:39 AM Total Procedure Duration Time 0 hours 12 minutes 8 seconds Findings: The perianal and digital rectal examinations were normal. A few small-mouthed diverticula were found in the recto-sigmoid colon. The exam was otherwise without abnormality on direct and retroflexion views. Impression: - Diverticulosis in the recto-sigmoid colon. - The examination was otherwise normal on direct and retroflexion views. - No specimens collected. Recommendation: - Discharge patient to home. - Resume previous diet. - Continue present medications. - Repeat colonoscopy in 10 years for screening purposes. Procedure Code(s): --- Professional --- G0121, Colorectal cancer screening; colonoscopy on individual not meeting criteria for high risk CPT copyright 2021 [employer]. All rights reserved. The codes documented in this report are preliminary and upon margarine churn operator review may be revised to meet current compliance requirements. Edgar Johnson DO 04/01/2024 9:34:12 AM This report has been signed electronically. Number of Addenda: 0 Note Initiated On: 04/01/2024 9:11 AM
[2024-04-01 09:35] VITALS: BP 101/60; BP 93/68; BP 96/65; PULSE 82; PULSE 85; RESP 16; TEMP 36.1; O2SAT 92
--- NOTE | 2024-04-01 09:35 | PCM.POST.ANE ---
Anesthesia: Postop Eval I Current Vital Signs Temperature: 97.8 F Pulse Rate: 88 Blood Pressure: 93/68 Respiratory Rate: 16 Pulse Ox: 93 Oxygen Delivery Method: Room Air Assessment Airway patent: Yes Spontaneous unlabored respirations: Yes Mental status: Asleep nausea: No Vomiting: No Anesthesia Complication: No Fluid Hydration Crystalloid volume administer (ml): 30 Total IV fluid infused: 30 Progress Note Anesthesia document: Postop Eval 1 completed: Yes
[2024-04-01 09:36] VITALS: BP 93/68; PULSE 88; RESP 16; TEMP 36.6; O2SAT 93
[2024-04-01 09:40] VITALS: BP 101/60; BP 98/70; PULSE 80; RESP 16; O2SAT 93
[2024-04-01 09:45] VITALS: BP 101/60; BP 96/63; PULSE 82; RESP 16; TEMP 36.1; O2SAT 96
--- NOTE | 2024-04-01 10:02 | PCM.POSTANE2 ---
Anesthesia Postop Eval I Sum Postop Eval Completion status Anesthesia document: Postop Eval 1 completed: Yes Anesthesia Postop Eval I Summary Anesthesia Postop Eval I Summary: Anesthesia Postop Eval I: Assessment Summary Airway patent Yes 04/01/24 09:36 [email or web address] Spontaneous unlabored Yes 04/01/24 09:36 [email or web address] respirations Mental status Asleep 04/01/24 09:36 [email or web address] nausea No 04/01/24 09:36 [email or web address] Vomiting No 04/01/24 09:36 [email or web address] Anesthesia Postop Eval I: Fluid Summary Crystalloid volume administer 30 04/01/24 09:36 [email or web address] (ml) Colloids volume administered ( ml) Blood Product volume administered (ml) Total IV fluid infused 30 04/01/24 09:36 [email or web address] Anesthesia Postop Eval I: Summary Notes Anesthesia Complication No 04/01/24 09:36 [email or web address] Anesthesia Complication Comment: Post-operative progress note Anesthesia: Postop Eval II Evaluation Mental status: Awake Pain Level: 0 nausea: No Vomiting: No
[2024-04-01 10:03] VITALS: BP 101/60
== END 2024-04-01 10:19 | disposition home or self-care (01) ==
LOC: EN 07:43 → AC 07:46
PROVIDERS: Anesthesiology; PCP Family Medicine; Referring Provider Family Medicine; Visit Provider Internal Medicine Gastroenterology
PROC: 0DJD8ZZ Inspection of Lower Intestinal Tract, Via Natural or Artificial Opening Endoscopic (ICD-10-PCS; CPT 45378; principal; 2024-04-01 08:40)
DX: Z12.11 Encounter for screening for malignant neoplasm of colon (principal); K57.30 Diverticulosis of large intestine without perforation or abscess without bleeding
CPT/HCPCS: 45378; 84703; A4216; J2405